=== PATIENT | female | born 1980 | race Caucasian/White ===

== ENCOUNTER 2017-03-16 21:50 | Emergency (ER) | payer OTHER ==
[2017-03-16 23:02] VITALS: BP 111/75; PULSE 112; RESP 20; TEMP 98.2; O2SAT 99
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
== END 2017-03-17 00:34 | disposition home or self-care (01) ==
LOC: C.ER 21:50
DX: S30.1XXA Contusion of abdominal wall, initial encounter (principal); Y04.2XXA Assault by strike against or bumped into by another person, initial encounter; Y92.9 Unspecified place or not applicable